=== PATIENT | female | born 1945 | race Caucasian/White ===

== ENCOUNTER 2017-01-15 09:45 | Emergency (ER) | payer MEDICARE ==
[2017-01-15] MEDS ORDERED: Aspirin Low Dose CHEW TAB* 81 MG PO ONE (10:21)
--- NOTE | 2017-01-15 10:53 | RAD ---
Indication: Neck pain, right upper extremity numbness. CT of the cervical spine was obtained in the axial plane. Sagittal and coronal reconstructed images were obtained. Skull base demonstrates no fracture. Mastoid air cells are well aerated. The C1 ring is intact. At C2-C3 there is minimal degenerative disc disease. No focal protrusion is identified. No fractures noted. At C3-C4 there is right uncovertebral joint hypertrophy and right facet arthropathy which narrows the right foramen at this level. Mild degenerative disc disease is noted. 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 Bilateral uncovertebral joint hypertrophy is noted with mild bilateral foraminal stenosis. At C6-C7 spondylitic ridge with flattening of the thecal sac is noted. Mild to moderate bilateral uncovertebral joint hypertrophy narrows both foramen. At C7-T1 degenerative disc disease with spondylytic ridge is noted. Bilateral uncovertebral joint hypertrophy is noted. IMPRESSION: DEGENERATIVE DISC DISEASE AT C4-C5, C5-C6 AND C6-C7 WITH BILATERAL UNCOVERTEBRAL JOINT HYPERTROPHY WITH MILD BILATERAL FORAMINAL STENOSIS AT THESE LEVELS. AT C3-C4 SPONDYLITIC RIDGE WITH RIGHT UNCOVERTEBRAL JOINT HYPERTROPHY AND RIGHT FACET ARTHROPATHY NARROWS THE RIGHT FORAMEN.
[2017-01-15 11:03] LABS: Hematocrit 42 % (35-47); Mean Corpuscular HGB Conc 33 g/dl (31-36); Mean Corpuscular Hemoglobin 31 pg (27-31); Mean Corpuscular Volume 93 fL (80-97); Mean Platelet Volume 8 um3 (7.4-10.4); Red Blood Count 4.49 10^6/ul (4.0-5.4); Red Cell Distribution Width 14 % (10.5-15); White Blood Count 8.1 10^3/ul (3.5-10.8)
[2017-01-15 11:20] LABS: Albumin 4.2 g/dL (3.2-5.2); Calcium 10.1 mg/dL (8.6-10.3); EGFR African American 97.4 (>60); EGFR Non-African American 75.7 (>60); Potassium 3.8 mmol/L (3.5-5.0); Total Bilirubin 0.4 mg/dL (0.2-1.0); Total Protein 7.2 g/dL (6.4-8.9)
[2017-01-15] MEDS ORDERED: Ketorolac INJ* 30 MG/ML 1 ML VIAL IV PUSH ONE (11:40)
--- NOTE | 2017-01-15 11:43 | RAD ---
HISTORY: Chest pain COMPARISONS: August 27, 2016 VIEWS: 4: Frontal dual-energy and lateral views of the chest. FINDINGS: CARDIOMEDIASTINAL SILHOUETTE: The cardiomediastinal silhouette is normal. DESHAWN: The deshawn are normal. PLEURA: The costophrenic angles are sharp. No pleural abnormalities are noted. LUNG PARENCHYMA: The lungs are clear. ABDOMEN: The upper abdomen is clear. There is no subphrenic gas. BONES AND SOFT TISSUES: No bone or soft tissue abnormalities are noted. OTHER: None. IMPRESSION: NO ACTIVE CARDIOPULMONARY DISEASE.
--- NOTE | 2017-01-15 11:44 | RAD ---
HISTORY: Scapular pain, shoulder pain, right COMPARISONS: None VIEWS: 7, Frontal internal rotation, external rotation, outlet, and axillary views of the right shoulder with frontal and lateral views of the right scapula FINDINGS: BONE DENSITY: Normal. BONES: There is no displaced fracture. JOINTS: There is no arthropathy. ALIGNMENT: There is no dislocation. SOFT TISSUES: Unremarkable. OTHER FINDINGS: None. IMPRESSION: NO ACUTE OSSEOUS INJURY. IF SYMPTOMS PERSIST, RECOMMEND REPEAT IMAGING.
[2017-01-15 12:50] VITALS: BP 118/62
--- NOTE | 2017-01-15 12:52 | ED ---
Denae Ruiz Auryana, scribed for Oracio Oh MD on 01/15/17 at 1022 . Upper Extremity Pain - HPI Summary HPI Summary: 71 year old female presents to the ED with right shoulder pain beginning 6 days ago. She states that the pain is focused in her shoulder blade with radiation to her elbow and outer breast. She describes the pain as sudden onset, burning, and heaviness. The pain is waxing and waning, up to a 5/10 in severity ( currently 3/10). Patient also reports itching of her shoulder, numbness, and weakness (new today). She denies any rashes or neck pain. Her symptoms are dissimilar to prior cervical disk pain. She denies any reaching or heavy lifting prior to onset of pain. Patient has been propping her right arm up with a pillow to help with the pain. PMHx is significant for breast cancer, small vessel cardiac disease, and coronary artery disease. She denies any PMHx of DM or hypothryroidism. - History of Current Complaint Chief Complaint: EDExtremityUpper Stated Complaint: RIGHT ARM/SHOULDER PAIN Time Seen by Provider: 01/15/17 10:02 Hx Obtained From: Patient Mechanism Of Injury: Unknown Onset/Duration: Started Days Ago Timing: Intermittent - waxing and waning, Lasting Days Severity Initially: Moderate Severity Currently: Moderate Pain Location: Shoulder, Elbow, Other: - outer breast Character: Burning Aggravating Factor(s): Other - arm by side Alleviating Factor(s): Elevation - Allergies/Home Medications Allergies/Adverse Reactions: Allergies Allergy/AdvReac Type Severity Reaction Status Date / Time No Known Allergies Allergy Verified 01/15/17 10:13 PMH/Surg Hx/FS Hx/Imm Hx Endocrine/Hematology History: Comment Only: Hx Anemia - POST HEAVEY BLEEDING, X@, YEARS AGO Cardiovascular History: Reports: Hx Coronary Artery Disease - SMALL VESSEL CARDIAC DISEASE, NO PROBLEMS, Hx Hypertension - UNDER CONTROLL WITH DAILY MEDS, Other Cardiovascular Problems/Disorders - SMALL VESSEL CARDIAC DISEASE DR SINGH Respiratory History: Reports: Hx Sleep Apnea - NO CPAP, Other Respiratory Problems/Disorders - HX OF COPD SEVERAL YEARS AGO, NO PROBLEMS SINCE, NO INHALERS GI History: Reports: Hx Gastroesophageal Reflux Disease - Hx OF GERD, Hx Hiatal Hernia - Hx OF, Hx Irritable Bowel - SEVERE CONSTIPATION, CONTROLED WITH DAILY MEDS Denies: Other GI Disorders History: Reports: Hx Kidney Stones - LEFT URETERAL CALCULUS PRESENTLY, PASSED ONE IN 03/2014 Musculoskeletal History: Reports: Hx Arthritis - HANDS, HIPS,, Other Musculoskeletal History - LOW BACK PAIN Sensory History: Reports: Hx Cataracts - BILATERAL 2009, Hx Contacts or Glasses - GLASSES Denies: Hx Hearing Aid Opthamlomology History: Reports: Hx Cataracts - BILATERAL 2009, Hx Contacts or Glasses - GLASSES Neurological History: Denies: Other Neuro Impairments/Disorders - Cancer History Cancer Type, Location and Year: BREAST Hx Chemotherapy: No Hx Radiation Therapy: Yes - 2012 left breast - Surgical History Surgery Procedure, Year, and Place: 2009 BILATERAL CATARACT [facility] [place]. 1966 & 1971 C-SECTIONS WITH APPENDECTOMY IN 1966, [facility] [place]. 2012 LEFT BREAST LUMPECTOMY , [facility] [place]. 2012 LEFT AXILIA LYMPH NODE REMOVED, [facility] [place] Hx Anesthesia Reactions: No Infectious Disease History: No Infectious Disease History: Denies: Traveled Outside the [place] in Last 30 Days - Family History Known Family History: Positive: Cardiac Disease, Hypertension, Diabetes, Other - cancer, blood clots - Social History Alcohol Use: Rare Substance Use Type: Reports: None Smoking Status (MU): Former Smoker Type: Cigarettes Have You Smoked in the Last Year: No Review of Systems Constitutional: Negative Negative: Fever Eyes: Negative ENT: Negative Cardiovascular: Negative Respiratory: Negative Gastrointestinal: Negative Genitourinary: Negative Positive: Myalgia - right shoulder with radiation to elbow and outer breast Positive: Other - itching on right shoulder. Negative: Rash Neurological: Negative Psychological: Normal All Other Systems Reviewed And Are Negative: Yes Physical Exam - Summary Physical Exam Summary: VITAL SIGNS: Reviewed. GENERAL: Patient is a well-developed and nourished female who is lying comfortable in the stretcher. Patient is not in any acute respiratory distress. HEAD AND FACE: No signs of trauma. No ecchymosis, hematomas or skull depressions. No sinus tenderness. EYES: PERRLA, EOMI x 2, No injected conjunctiva, no nystagmus. EARS: Hearing grossly intact. Ear canals and tympanic membranes are within normal limits. MOUTH: Oropharynx within normal limits. NECK: Supple, trachea is midline, no adenopathy, no JVD, no carotid bruit, no c- spine tenderness, neck with full ROM. CHEST: Symmetric, no tenderness at palpation LUNGS: Clear to auscultation bilaterally. No wheezing or crackles. CVS: Regular rate and rhythm, S1 and S2 present, no murmurs or gallops appreciated. ABDOMEN: Soft, non-tender. No signs of distention. No rebound no guarding, and no masses palpated. Bowel sounds are normal. EXTREMITIES: FROM in all major joints, no edema, no cyanosis or clubbing. NEURO: Alert and oriented x 3. No acute neurological deficits. Speech is normal and follows commands. SKIN: Dry and warm. Triage Information Reviewed: Yes Vital Signs On Initial Exam: Initial Vitals Temp Pulse Resp BP Pulse Ox 97.7 F 87 20 144/79 96 01/15/17 09:49 01/15/17 09:49 01/15/17 09:49 01/15/17 09:49 01/15/17 09:49 Vital Signs Reviewed: Yes - [place] Coma Scale Coma Scale Total: 15 Diagnostics - Vital Signs Vital Signs Temp Pulse Resp BP Pulse Ox 01/15/17 10:00 97.7 F 87 20 144/79 100 01/15/17 09:49 97.7 F 87 20 144/79 96 - Laboratory Lab Results: Lab Results 01/15/17 01/15/17 01/15/17 Range/Units 10:55 10:55 10:55 WBC 8.1 (3.5-10.8) 10^3/ul RBC 4.49 (4.0-5.4) 10^6/ul Hgb 14.0 (12.0-16.0) g/dl Hct 42 (35-47) % MCV 93 (80-97) fL MCH 31 (27-31) pg MCHC 33 (31-36) g/dl RDW 14 (10.5-15) % Plt Count 310 (150-450) 10^3/ul MPV 8 (7.4-10.4) um3 Neut % (Auto) 73.6 (38-83) % Lymph % (Auto) 14.9 L (25-47) % [place] % (Auto) 9.0 (1-9) % Eos % (Auto) 1.8 (0-6) % Baso % (Auto) 0.7 (0-2) % Absolute Neuts (auto) 6.0 (1.5-7.7) 10^3/ul Absolute Lymphs (auto) 1.2 (1.0-4.8) 10^3/ul Absolute Monos (auto) 0.7 (0-0.8) 10^3/ul Absolute Eos (auto) 0.1 (0-0.6) 10^3/ul Absolute Basos (auto) 0.1 (0-0.2) 10^3/ul Absolute Nucleated RBC 0 10^3/ul Nucleated RBC % 0 Sodium 135 (133-145) mmol/L Potassium 3.8 (3.5-5.0) mmol/L Chloride 104 (101-111) mmol/L Carbon Dioxide 24 (22-32) mmol/L Anion Gap 7 (2-11) mmol/L BUN 15 (6-24) mg/dL Creatinine 0.75 (0.51-0.95) mg/dL Est GFR ( Amer) 97.4 (>60) Est GFR (Non-Af Amer) 75.7 (>60) BUN/Creatinine Ratio 20.0 (8-20) Glucose 89 (70-100) mg/dL Lactic Acid 1.2 (0.5-2.0) mmol/L Calcium 10.1 (8.6-10.3) mg/dL Total Bilirubin 0.40 (0.2-1.0) mg/dL AST 15 (13-39) U/L ALT 22 (7-52) U/L Alkaline Phosphatase 94 (34-104) U/L Troponin I 0.00 (<0.04) ng/mL B-Natriuretic Peptide ( - 100) pg/mL Total Protein 7.2 (6.4-8.9) g/dL Albumin 4.2 (3.2-5.2) g/dL Globulin 3.0 (2-4) g/dL Albumin/Globulin Ratio 1.4 (1-3) 01/15/ Range/Units 10:55 WBC (3.5-10.8) 10^3/ul RBC (4.0-5.4) 10^6/ul Hgb (12.0-16.0) g/dl Hct (35-47) % MCV (80-97) fL MCH (27-31) pg MCHC (31-36) g/dl RDW (10.5-15) % Plt Count (150-450) 10^3/ul MPV (7.4-10.4) um3 Neut % (Auto) (38-83) % Lymph % (Auto) (25-47) % [place] % (Auto) (1-9) % Eos % (Auto) (0-6) % Baso % (Auto) (0-2) % Absolute Neuts (auto) (1.5-7.7) 10^3/ul Absolute Lymphs (auto) (1.0-4.8) 10^3/ul Absolute Monos (auto) (0-0.8) 10^3/ul Absolute Eos (auto) (0-0.6) 10^3/ul Absolute Basos (auto) (0-0.2) 10^3/ul Absolute Nucleated RBC 10^3/ul Nucleated RBC % Sodium (133-145) mmol/L Potassium (3.5-5.0) mmol/L Chloride (101-111) mmol/L Carbon Dioxide (22-32) mmol/L Anion Gap (2-11) mmol/L BUN (6-24) mg/dL Creatinine (0.51-0.95) mg/dL Est GFR ( Amer) (>60) Est GFR (Non-Af Amer) (>60) BUN/Creatinine Ratio (8-20) Glucose (70-100) mg/dL Lactic Acid (0.5-2.0) mmol/L Calcium (8.6-10.3) mg/dL Total Bilirubin (0.2-1.0) mg/dL AST (13-39) U/L ALT (7-52) U/L Alkaline Phosphatase (34-104) U/L Troponin I (<0.04) ng/mL B-Natriuretic Peptide 17 ( - 100) pg/mL Total Protein (6.4-8.9) g/dL Albumin (3.2-5.2) g/dL Globulin (2-4) g/dL Albumin/Globulin Ratio (1-3) Result Diagrams: 01/15/17 10:55 01/15/17 10:55 Lab Statement: Any lab studies that have been ordered have been reviewed, and results considered in the medical decision making process. - Radiology RIGHT SCAPULA XR Xray Interpretation: No Acute Changes Radiology Interpretation Completed By: Radiologist - IMPRESSION: NO ACUTE OSSEOUS INJURY. IF SYMPTOMS PERSIST, RECOMMEND REPEAT IMAGING. RIGHT Shoulder XR Xray Interpretation: No Acute Changes - IMPRESSION: NO ACUTE OSSEOUS INJURY. IF SYMPTOMS PERSIST, RECOMMEND REPEAT IMAGING. Radiology Interpretation Completed By: Radiologist CXR Xray Interpretation: No Acute Changes Radiology Interpretation Completed By: Radiologist - CT CERVICAL CT CT Interpretation: Positive (See Comments) - IMPRESSION: DEGENERATIVE DISC DISEASE AT C4-C5, C5-C6 AND C6-C7 WITH BILATERAL UNCOVERTEBRAL JOINT HYPERTROPHY WITH MILD BILATERAL FORAMINAL STENOSIS AT THESE LEVELS. CT Interpretation Completed By: Radiologist - EKG 10:53 EKG Interpretation: Sinus rhythm at [address] elevation. Course/Dx - Course Assessment/Plan: 71 year old female presents to the ED with right shoulder pain beginning 6 days ago. She states that the pain is focused in her shoulder blade with radiation to her elbow and outer breast. She describes the pain as sudden onset, burning, and heaviness. The pain is waxing and waning, up to a 5/10 in severity (currently 3/10). Patient also reports itching of her shoulder, numbness, and weakness (new today). She denies any rashes or neck pain. Her symptoms are dissimilar to prior cervical disk pain. She denies any reaching or heavy lifting prior to onset of pain. Patient has been propping her right arm up with a pillow to help with the pain. PMHx is significant for breast cancer, small vessel cardiac disease, and coronary artery disease. She denies any PMHx of DM or hypothyroidism. In the ED course an IV access was obtained. Patient was placed in a quality assurance monitor final. Labs within normal limits. Troponin #1: 0.00. EKG shows a NSR at 73 BPM w/o ST elevations. C spine CT: IMPRESSION: DEGENERATIVE DISC DISEASE AT C4-C5, C5-C6 AND C6-C7 WITH BILATERAL UNCOVERTEBRAL JOINT HYPERTROPHY WITH MILD BILATERAL FORAMINAL STENOSIS AT THESE LEVELS. AT C3-C4 SPONDYLOTIC RIDGE WITH RIGHT UNCOVERTEBRAL JOINT HYPERTROPHY AND RIGHT FACET. ARTHROPATHY NARROWS THE RIGHT FORAMEN. Scapula x-ray IMPRESSION: NO ACUTE OSSEOUS INJURY. IF SYMPTOMS PERSIST, RECOMMEND REPEAT IMAGING. [place] x-ray IMPRESSION: NO ACUTE OSSEOUS INJURY. IF SYMPTOMS PERSIST, RECOMMEND REPEAT IMAGING. CXR IMPRESSION: CARDIOMEGALY WITH INTERSTITIAL EDEMA LIKELY DUE TO PULMONARY EDEMA. In the ED patient has remained stable. She has no other complaints. She was given Toradol and symptoms improved. I believe pain and numbness is coming from her neck. I have nos suspicion or ACS or PE. She will be given pain medication and medrol dose pack and f/u with PMD. She will be discharged home with f/u of PMD. I discussed all the findings and test results with the patient. Patient was instructed to return to the emergency room immediately if any of the symptoms return or worsens. Plan of care was discussed with the patient and understands and agrees. All questions were answered at patient satisfaction. There were no further complaints or concerns. Lung exam before discharge: CTA B/L. Good air exchange. No wheezing or crackles heard. CVS: S1 and S2 present. No murmurs appreciated. Patient is alert and oriented x 3. Patient is hemodynamically stable. Patient will be discharged home with follow up PCP in the next 2-3 days - Diagnoses Differential Diagnosis/HQI/PQRI: Positive: Arthritis, Bursitis, Fracture (Closed ), Strain, Sprain Provider Diagnoses: Shoulder pain, Neck pain Discharge - Discharge Plan Condition: Stable Disposition: HOME Prescriptions: Methylprednisolone [Medrol Dosepak 4 MG*] 0 mg PO .SEE ASIF INSTRUCTION #1 asif Naproxen TAB* [Naprosyn 250 mg TAB*] 500 mg PO Q8H PRN #20 tab PRN Reason: Pain oxyCODONE/Acetamin 5/325 MG* [Percocet 5/325 TAB*] 1 tab PO Q6H PRN #12 tab MDD 4 tabs / day PRN Reason: Pain Patient Education Materials: Shoulder Pain (ED), Neck Pain (ED) Referrals: Abbi Swann MD [Primary Care Provider] - 3 Days The documentation as recorded by the Denae correa Auryana accurately reflects the service I personally performed and the decisions made by , Oracio Oh MD.
== END 2017-01-15 12:54 | disposition home or self-care (01) ==
LOC: ED 09:45
DX: M54.2 Cervicalgia (principal); M25.511 Pain in right shoulder; Z87.891 Personal history of nicotine dependence
CPT/HCPCS: 36415; 71020; 72125; 80053; 83605; 83880; 84484; 85025; 93005; 96374; 99283; A9270-GY; J1885

== ENCOUNTER 2017-05-19 10:22 | Day surgery (SDC) | payer MEDICARE ==
--- NOTE | 2017-05-18 03:14 | HP ---
CC: Dr. Abbi Swann* HISTORY AND PHYSICAL: DATE OF PLANNED ADMISSION AND SURGERY: 05/19/17 HISTORY OF PRESENT ILLNESS: Ms. Middleton is a 72-year-old white female who is admitted with proximal left ureteral calculi for cystoscopy, left ureteroscopy, laser lithotripsy, and left ureteral stent placement. I have been following Ms. Middleton because of history of renal calculus disease. In June 2017, she had a distal left ureteral calculus and underwent a left ureteroscopy and stent placement. She did well following the procedure. At that time, she was noted to have no residual renal calculi. She was reevaluated 5 months ago with routine renal ultrasound. She was noted to have 3 calculi in the left kidney with the largest measuring 7 mm in size. Because of that finding, she had metabolic stone workup, which showed hypercalciuria. She was started on chlorthalidone at 25 mg daily and put on diet for stone prevention. Followup 24-hour urine studies showed correction of the hypercalciuria and normal blood work with no hypercalcemia. The patient presented to the office about 2 weeks ago with symptoms of left renal colic. She was evaluated with renal ultrasound, which showed a 6-mm calculus in the proximal left ureter. She was managed conservatively with pain medications and alpha blockers. She remained moderately symptomatic. Recent renal ultrasound done in the office showed that she had what looks like 2 calculi in the proximal left ureter associated with mild left hydronephrosis and only 1 calculus in the lower pole calyx of the left kidney. Because of that history and finding, the size of the stones, and their proximal location, and the fact that they have not dropped in the last 2 weeks, the patient is admitted for the above procedure. PAST MEDICAL HISTORY AND SYSTEM REVIEW: She gives history of hypertension, palpitations, past history of angina, and past history of left breast carcinoma. She was evaluated 2 months ago for her routine cardiology visit by Dr. Alberto. I am including a copy of his report. It seems like she has very good exercise tolerance and exercises actively for about 3 times per week on the treadmill with no chest pain or shortness of breath. MEDICATIONS: The patient is maintained on: 1. Lipitor 80 mg daily. 2. Diltiazem 120 mg twice a day. 3. Omeprazole 20 mg twice a day. 4. Amitiza 24 mcg 1 tablet twice a day. 5. Isosorbide 15 mg daily. 6. One baby aspirin per day. 7. Vitamin D supplement. ALLERGIES: She denies any allergies to medications. PHYSICAL EXAMINATION GENERAL: Overweight white female, who looks otherwise good for her age. VITAL SIGNS: Blood pressure 120/70, pulse of 70. LUNGS: Clear. HEART: Regular and rhythmic. No murmurs. ABDOMEN: Soft, no masses, no tenderness. There is mild left CVA tenderness. IMPRESSION: Proximal left ureteral calculi associated with mild hydronephrosis. PLAN: For left ureteroscopy, laser lithotripsy, and left ureteral stent placement. I discussed the above plans in detail with the patient. Some of the potential complications including small incidence of ureteral stricture, urinary tract infections. The patient understands that she might need staged procedure if the calculi cannot be reached or they cannot be treated at one sitting. All of her questions were answered. [id number]/CPS #: [id number] MTDD
[~2017-05-19 10:22] MED LIST: Buffered Lidocaine 0.9% SYRIN* 5 ML/SYR SYRINGE INTRADERM ONE; Buffered Lidocaine 0.9% SYRIN* 5 ML/SYR SYRINGE ONE; DiMENhydriNATE IV* 50 MG/ML VIAL IV PUSH PRN; Famotidine IV* 10 MG/ML 2 ML (20 mg) IV ONE; Famotidine IV* 10 MG/ML 2 ML (20 mg) ONE; Morphine INJ* 2 MG/ML 1 ML CARPUJECT IV PRN; PROCHLORPERAZINE INJ 5 MG/ML 2 ML VIAL IV PRN; cefTRIAXone(*) 2 GM ADDV.VIAL IVPB ONE; fentaNYL* 50 MCG/ML 2 ML VIAL (100 MCG VIAL) IV PRN; oxyCODONE/Acetamin 5/325 MG* TAB PO PRN
[2017-05-19] MEDS ORDERED: KETAMINE HCL* 50 MG/ML 10 ML VIAL ONE (11:03)
[2017-05-19] MEDS ORDERED: Midazolam* 1 MG/ML 5 ML VIAL (5 MG) ONE (11:03)
[2017-05-19] MEDS ORDERED: fentaNYL* 50 MCG/ML 2 ML VIAL (100 MCG VIAL) ONE (11:03)
[2017-05-19] MEDS ORDERED: Furosemide IV* 10 MG/ML 2 ML VIAL (20 MG) ONE (11:04)
[2017-05-19] MEDS ORDERED: Iohexol 180 (CONTRAST) 10 ML SDV IV ONE (11:53)
[2017-05-19] MEDS ORDERED: Ondansetron INJ* 2 MG/ML VIAL ONE (13:39)
[2017-05-19] MEDS ORDERED: Lidocaine 2% PF * 5 ML VIAL ONE (13:39)
[2017-05-19] MEDS ORDERED: Diltiazem IV* 5 MG/ML 5 ML VIAL (for loading dose/IV Push) (25 MG) ONE (13:39)
[2017-05-19] MEDS ORDERED: Propofol* 10 MG/ML 20 ML BTL IV PUSH ONE (13:39)
[2017-05-19] MEDS ORDERED: Dexamethasone IV* 4 MG/ML 1 ML (4 MG) ONE (13:39)
--- NOTE | 2017-05-19 14:08 | RAD ---
INDICATION: Right ureteral stent insertion/ureteroscopy COMPARISON: None FINDINGS: 7 seconds of fluoroscopy were provided for the urology department. Fluoroscopic spot imaging of the abdomen were obtained for operative control and show placement of left ureteral stent. The proximal stent is: The renal pelvis. The distal portion stent is not imaged . CPT II Codes: 6045F (fluoro time doc)
[2017-05-19 14:17] VITALS: BP 138/72
--- NOTE | 2017-05-20 05:57 | OP ---
CC: Dr. Abbi Swann * DATE OF OPERATION: 05/19/17 - [facility] DATE OF : 41 SURGEON: Tio Patricio MD ANESTHESIOLOGIST: Dr. Theron Ahmadi. ANESTHESIA: General. PRE-OP DIAGNOSIS: Proximal left ureteral calculi. POST-OP DIAGNOSIS: Proximal left ureteral calculi. OPERATIVE PROCEDURE: 1. Cystoscopy. 2. Left ureteroscopy and pyeloscopy. 3. Laser lithotripsy and extraction of proximal left ureteral calculi 4. Left retrograde pyelography and placement of left ureteral stent (6-Kosovan). INDICATIONS FOR PROCEDURE: Ms. Middleton is a 72-year-old white female who is a known stone former and who presented 2 weeks ago with symptoms of left renal colic and was noted on evaluation to have 6 to 7 mm calculus in the proximal left ureter associated with mild hydronephrosis. She was managed conservatively with alpha blockers and pain medications as needed. Followup renal ultrasound 2 days ago showed that another calculus which was located in the lower pole of the left kidney had migrated into the proximal ureter adjacent to the stone forming a cluster of stone of more than 1 cm in size. This was associated with mild hydronephrosis. Because of the size of the ureteral calculi, the proximal location and the persistent symptoms, the above procedure were advised and accepted. PATHOLOGY: At cystoscopy, the bladder mucosa looked normal. There were no suspicious bladder lesion seen. The ureteral orifices looked normal. There was a moderate degree of cystocele. At fluoroscopy, a cluster of calculi was noted in the area of the proximal left ureter. Upon introduction of the hybrid wire, there was initial resistance to the introduction of the wire beyond the stones. Upon left ureteroscopy, the calculi were noted in the proximal ureter about 3 to 4 cm distal to the ureteropelvic junction. One of the calculi was impacted and adherent to the ureteral wall. The calculi had the gross appearance of calcium oxalate stone. DESCRIPTION OF PROCEDURE: After successful general anesthesia, the patient was placed in the lithotomy position and was prepped and draped for a cystoscopy. Cystoscopy was performed. The bladder was carefully inspected and above findings were noted. A hybrid guidewire was then introduced into the left orifice and after several attempts was successfully introduced into the renal pelvis past the ureteral calculi. A size 6.5 semirigid tapered ureteroscope was then introduced inside the bladder. A flexible tip basket was introduced through the port of the ureteroscope and the flexible tip was then passed inside the left ureteral orifice adjacent to the guidewire. This allowed the atraumatic introduction of the ureteroscope into the ureter. The ureter yielded easily to the ureteroscope. The calculi were identified in the proximal ureter. The basket was then deployed beyond the stones to avoid their proximal migration. A size 550 micron laser fiber was then introduced through the other port of the ureteroscope and the stones were fragmented into smaller pieces. The fragments were then extracted. The stone that was impacted in the ureteral wall was gently maneuvered and successfully broken into smaller fragments with laser and the fragments extracted. The ureteroscope was then reintroduced all the way into the renal pelvis in an atraumatic way. Stone fragments that have migrated proximally were then extracted. Inspection of the ureteral wall showed some edema, but no evidence of any ureteral wall injury. After making sure there were no significant residual calculi, the ureteroscope was removed and the cystoscope was introduced inside the bladder over the guidewire. Retrograde pyelography was performed. There was no extravasation noted. A size 6- Kosovan stent was then placed with the proximal end coiling in the renal pelvis and the distal end coiling inside the bladder. There was good drainage of contrast from the kidney. The bladder was then irrigated and the stone fragments were evacuated and sent for stone analysis. The patient tolerated the procedure well and left the operating room in good condition. The plan is to leave the stent in place for 10 to 14 days. It will be removed in the office under local anesthesia. [id number]/CPS #: [id number] [id number]
== END 2017-05-19 14:46 | disposition home or self-care (01) ==
LOC: OR 10:22
PROVIDERS: ATTEND Urology
DX: N13.2 Hydronephrosis with renal and ureteral calculous obstruction (principal); I10 Essential (primary) hypertension; I20.9 Angina pectoris, unspecified; Z85.3 Personal history of malignant neoplasm of breast; E78.5 Hyperlipidemia, unspecified; Z96.0 Presence of urogenital implants; N81.10 Cystocele, unspecified
CPT/HCPCS: 74420; 82365; 88300; C1876; J0696; J1100; J1940; J2250; J2405; J2704; J3010

== ENCOUNTER 2018-07-21 05:44 | Day surgery (SDC) | payer MEDICARE ==
--- NOTE | 2018-07-15 17:52 | HP ---
HISTORY AND PHYSICAL: DATE OF ADMISSION/SURGERY: 07/21/18 DATE OF OFFICE VISIT: 07/15/18 SURGEON: Luann Terrell MD * (DICTATED BY NATALIYA QUINN) PROCEDURE: Right knee arthroscopy with partial meniscectomy, possible chondroplasty, possible synovectomy. CHIEF COMPLAINT: Right knee pain. HISTORY OF PRESENT ILLNESS: Ms. Middleton is a 73-year-old female with continued complaints of right knee pain and she is elected to proceed with surgery. PAST MEDICAL HISTORY: Sleep apnea, history of breast cancer, GERD, hypertension , hyperlipidemia, and coronary artery disease. PAST SURGICAL HISTORY: Left breast lumpectomy, cataract removal, x2, lymph node biopsy, removal of kidney stones, and appendectomy. CURRENT MEDICATIONS: 1. Cardizem 120 mg twice a day. 2. Magnesium oxide 250 mg daily. 3. Potassium chloride 20 mEq daily. 4. Chlorthalidone 25 mg daily. 5. Atorvastatin calcium 40 mg daily. 6. Omeprazole 20 mg twice a day. 7. Amitiza 24 mcg twice a day. 8. Isosorbide mononitrate 30 mg half a tab daily. 9. Aspirin 81 mg daily. 10. Vitamin D. ALLERGIES: No known drug allergies. FAMILY HISTORY: DVT, diabetes, cancer, and coronary artery disease. SOCIAL HISTORY: She is a 73-year-old female. She lives with her . She does not smoke or use drugs. Uses occasional alcohol. REVIEW OF SYSTEMS: A complete 14-point review of systems was reviewed with the patient. It was positive for GERD. She denies history of DVT, PE, hepatitis, HIV, or anesthesia problems. PHYSICAL EXAMINATION GENERAL: She is well developed, well nourished, in no acute distress. VITAL SIGNS: She stands 58 inches tall, weighs 180 pounds. Her blood pressure is 124/77 and her heart rate is 62. HEENT: Normocephalic, atraumatic. NECK: Supple. No palpable lymph nodes. PULMONARY: The lungs are clear to auscultation bilaterally. CARDIO: Regular rate and rhythm. Strong S1 and S2. ABDOMEN: Soft, nontender, nondistended. NEUROLOGICAL: She is alert and oriented x3. MUSCULOSKELETAL: Right lower extremity, the skin is intact. There are no open wounds or abrasions. There is some tenderness over the medial joint line. There is a mild effusion. She has a positive Apley's and positive Zahra's. Negative Ara's. The range of motion is 10 to 120 degrees of flexion. She has a 2+ dorsalis pedis pulse, intact sensation, and her lower extremity muscle group strengths are intact at 5/5. ASSESSMENT AND PLAN: Ms. Middleton is a 73-year-old female with complaints of right knee pain and MRI confirms a medial meniscus tear. She is elected to proceed with a right knee arthroscopy with partial meniscectomy, possible chondroplasty, possible synovectomy. The surgery is scheduled for 07/21/[address] Terrell discussed the risks and benefits of the surgery at today's visit and all of her questions were answered. She will follow up with Dr. Terrell 2 weeks after the surgery. NATALIYA QUINN [id number]/[facility] #: [id number] [place]
[~2018-07-21 05:44] MED LIST changes: -Buffered Lidocaine 0.9% SYRIN* 5 ML/SYR SYRINGE INTRADERM ONE; -Buffered Lidocaine 0.9% SYRIN* 5 ML/SYR SYRINGE ONE; +Buffered Lidocaine 1% SYRIN* 1 ML/SYRINGE INTRADERM ONE; -DiMENhydriNATE IV* 50 MG/ML VIAL IV PUSH PRN; -Famotidine IV* 10 MG/ML 2 ML (20 mg) IV ONE; -Famotidine IV* 10 MG/ML 2 ML (20 mg) ONE; -Morphine INJ* 2 MG/ML 1 ML CARPUJECT IV PRN; -PROCHLORPERAZINE INJ 5 MG/ML 2 ML VIAL IV PRN; -cefTRIAXone(*) 2 GM ADDV.VIAL IVPB ONE; -fentaNYL* 50 MCG/ML 2 ML VIAL (100 MCG VIAL) IV PRN; -oxyCODONE/Acetamin 5/325 MG* TAB PO PRN
[2018-07-21] MEDS ORDERED: Dexamethasone IV* 4 MG/ML 1 ML (4 MG) IV SLOW PU ONE (06:00)
[2018-07-21] MEDS ORDERED: Lactated Ringers 1000 ML Bag* 1,000 ML IV SCH (06:00)
[2018-07-21] MEDS ORDERED: Dexamethasone IV* 4 MG/ML 1 ML (4 MG) ONE (06:10)
[2018-07-21] MEDS ORDERED: Buffered Lidocaine 1% SYRIN* 1 ML/SYRINGE INTRADERM ONE (06:10)
[2018-07-21] MEDS ORDERED: ceFAZolin 2 GM PREMIX in ORs 2 GM/50 ML BAG IVPB ONE (06:10)
[2018-07-21] MEDS ORDERED: EPINEPHRINE 1 MG/ML 1 ML VIAL ONE (06:59)
[2018-07-21] MEDS ORDERED: methylPREDNISolone ACETATE 80* 80 MG/ML 1 ML VIAL ONE (06:59)
[2018-07-21] MEDS ORDERED: Bupivacaine 0.5%* 50 ML VIAL ONE (06:59)
[2018-07-21] MEDS ORDERED: Midazolam* 1 MG/ML 2 ML VIAL (2 MG) ONE (07:07)
[2018-07-21] MEDS ORDERED: fentaNYL* 50 MCG/ML 2 ML VIAL (100 MCG VIAL) ONE (07:07)
[2018-07-21] MEDS ORDERED: EPHEDrine (Pressors)* 50 MG/ML VIAL ONE (07:09)
[2018-07-21] MEDS ORDERED: Propofol* 10 MG/ML 20 ML BTL ONE (07:12)
[2018-07-21] MEDS ORDERED: Ondansetron INJ* 2 MG/ML VIAL ONE (07:12)
[2018-07-21] MEDS ORDERED: Lidocaine 2% PF * 5 ML VIAL ONE (07:12)
[2018-07-21] MEDS ORDERED: Ketorolac INJ* 30 MG/ML 1 ML VIAL ONE (07:12)
[2018-07-21] MEDS ORDERED: oxyCODONE/Acetamin 5/325 MG* TAB PO PRN (08:48)
[2018-07-21] MEDS ORDERED: Naloxone* 0.4 MG/ML 1 ML VIAL IV PRN (08:48)
[2018-07-21] MEDS ORDERED: fentaNYL* 50 MCG/ML 2 ML VIAL (100 MCG VIAL) IV PRN (08:48)
[2018-07-21] MEDS ORDERED: Ondansetron INJ* 2 MG/ML VIAL IV PRN (08:48)
[2018-07-21] MEDS ORDERED: DiMENhydriNATE IV* 50 MG/ML VIAL IV PUSH PRN (08:48)
[2018-07-21] MEDS ORDERED: oxyCODONE/Acetamin 5/325 MG* TAB ONE (09:00)
[2018-07-21 09:45] VITALS: BP 108/73
--- NOTE | 2018-07-22 00:44 | OP ---
DATE OF OPERATION: 07/21/18 - [facility] DATE OF : 41 ATTENDING SURGEON: Luann Terrell MD DISPLAY DECORATOR: NATALIYA Harris. Darvin did help throughout the procedure with preparation of the leg, wound retraction, manipulation of the knee, and wound closure. ANESTHESIOLOGIST: Dr. Montenegro. ANESTHESIA: General. PRE-OP DIAGNOSES: Right knee medial meniscal tear, moderate osteoarthritis. POST-OP DIAGNOSES: Right knee medial meniscal tear, linear tear with significant displacement, lateral meniscal tear, radial tear, medial plica, moderate osteoarthritis. OPERATIVE PROCEDURE: Right knee arthroscopy with partial medial meniscectomy, partial lateral meniscectomy, medial plica excision. ESTIMATED BLOOD LOSS: Less than 25 cc. COMPLICATIONS: None. SPECIMEN: None. BRIEF HISTORY/INDICATION: Ms. Middleton is a 73-year-old female known to me in the past for right knee osteoarthritis. She developed mechanical symptoms that were giving her significant pain. She failed conservative treatment with antiinflammatories, physical therapy, and intraarticular injection. Due to continued pain and decreased quality of life, we obtained MRI which did confirm a medial meniscal tear. The patient elected to undergo right knee arthroscopy, partial meniscectomy, possible chondroplasty, possible synovectomy, possible plica excision. Informed consent was obtained from the patient. The patient understood the risks of surgery included but were not limited to bleeding, infection, damage to nearby structures, continued pain, need for further surgery , re-tear of the meniscus, progression of arthritis, stroke, heart attack, blood clot, and . She wished to proceed. INTRAOPERATIVE FINDINGS: Intraoperatively, the patient was noted to have moderate degenerative changes in the medial and patellofemoral compartment. These were grade 3 and 4 Outerbridge cartilage changes with limited surface area of the weightbearing surfaces. She had a significant linear tear of the medial meniscus involving the majority of the meniscus with displacement into the joint space. This was in the white-red zone. She also had a radial tear of the posterolateral meniscus, which was a radial tear in the white-red zone. The patient had a significant medial plica, which did impinge with range of motion in the patellofemoral compartment. DESCRIPTION OF PROCEDURE: Ms. Middleton was identified in the preanesthesia unit. Her right lower extremity was marked as the correct operative site. Informed consent was signed and placed in the chart. The patient was taken to the operating room and placed under general anesthesia. The patient's right lower extremity was prepped and draped in the usual sterile fashion. Preop time -out was made to correctly identify the patient, side, and site. Appropriate perioperative antibiotics were given within 1 hour of incision. A 0.5-cm anterolateral portal incision was made with a 10-blade and carried down to the capsule. Trocar was introduced. As soon as the light and water sources were turned on, there was immediate visualization of the suprapatellar pouch. A tour of the knee joint was performed. Suprapatellar pouch had no obvious abnormality. The patellofemoral compartment had some grade 3 and 4 Outerbridge cartilage changes with some visible frayed cartilage along the medial and lateral patellar facet. There was a large medial plica, which did impinge with range of motion when the knee was flexed at the patellofemoral compartment. The medial compartment showed some degeneration and grade 3/4 Outerbridge cartilage changes along the medial femoral condyle. There was a linear meniscal tear with displacement into the joint space anteriorly. This was in the white-red zone. This involved the majority of the medial meniscus. ACL and PCL appeared to be intact. The knee was placed in a [id number]-[id number]-[id number] position. There were minimal degenerative changes in the lateral compartment. There was a radial tear with displacement into the joint space at the white-red zone. There was no abnormality in the lateral gutter. Under direct visualization, a medial portal incision was made. A second tour of the knee joint was performed. Radio-frequency ablation wand and shaver were used to excise the medial plica. Straight biter and shaver were used to perform partial medial meniscectomy. A smooth border of the meniscus was obtained. Radiofrequency ablation wand was used to further smooth the edge. The knee was placed in a yefprv-gw-[id number] position. Straight biter and shaver were used to perform partial lateral meniscectomy until a smooth border of the meniscus was obtained. Knee was copiously irrigated with sterile saline. All instruments were removed. Intraarticular injection of 80 mg Depo-Medrol and 6 cc of 0.25% Marcaine was placed in the knee joint. The incisions were covered with Xeroform, 4x4s, Webril, and Ciro wrap. The patient was taken to the PACU in stable condition. [id number]/[facility] #: [id number] [place]
== END 2018-07-21 09:47 | disposition home or self-care (01) ==
LOC: OR 05:44
PROVIDERS: ATTEND Orthopaedic Surgery Adult Reconstructive Orthopaedic Surgery
DX: S83.241A Other tear of medial meniscus, current injury, right knee, initial encounter (principal); M17.11 Unilateral primary osteoarthritis, right knee; M25.561 Pain in right knee; M25.461 Effusion, right knee; S83.281A Other tear of lateral meniscus, current injury, right knee, initial encounter; X58.XXXA Exposure to other specified factors, initial encounter; Z85.3 Personal history of malignant neoplasm of breast; K21.9 Gastro-esophageal reflux disease without esophagitis; I10 Essential (primary) hypertension; I25.10 Atherosclerotic heart disease of native coronary artery without angina pectoris; E78.5 Hyperlipidemia, unspecified; Z79.82 Long term (current) use of aspirin; Z79.899 Other long term (current) drug therapy
CPT/HCPCS: A9270-GY; J0690; J1040; J1100; J1885; J2250; J2405; J2704; J3010

== ENCOUNTER 2019-04-20 06:22 | Observation (INO) | payer MEDICARE ==
[~2019-04-20 06:22] MED LIST changes: +Acetaminophen IV 1GM/100ML * 1,000 MG/100 ML VIAL IVPB ONE; +Gabapentin CAP(*) 300 MG PO ONE; +Lactated Ringers 1000 ML Bag* 1,000 ML IV SCH; +celeCOXIB CAP* 200 MG PO ONE
[2019-04-20] MEDS ORDERED: Tranexamic Acid 1,000 MG in NS 0.9% 50 ML IV ONE (07:00)
[2019-04-20] MEDS ORDERED: ROPIVACAINE 5 MG/ML 30 ML BTL (0.5%) ONE ×2 (07:01→08:17)
[2019-04-20] MEDS ORDERED: Gabapentin CAP(*) 300 MG ONE ×2 (07:28→07:45)
[2019-04-20] MEDS ORDERED: ceFAZolin 2 GM PREMIX in ORs 2 GM/50 ML BAG ONE (07:29)
[2019-04-20] MEDS ORDERED: Acetaminophen IV 1GM/100ML * 100 ML ONE (07:29)
[2019-04-20] MEDS ORDERED: Dexamethasone TAB* 4 MG ONE (07:29)
[2019-04-20] MEDS ORDERED: celeCOXIB CAP* 200 MG ONE (07:29)
[2019-04-20] MEDS ORDERED: Dexamethasone IV* 4 MG/ML 1 ML (4 MG) ONE (07:40)
[2019-04-20] MEDS: Dexamethasone TAB* 4 MG PO ONE ×2 (07:41→16:06)
[2019-04-20] MEDS ORDERED: Propofol* 10 MG/ML 20 ML BTL ONE (07:48)
[2019-04-20] MEDS ORDERED: Midazolam* 1 MG/ML 5 ML VIAL (5 MG) ONE (07:48)
[2019-04-20] MEDS ORDERED: KETAMINE HCL* 50 MG/ML 10 ML VIAL ONE (07:48)
[2019-04-20] MEDS ORDERED: Phenylephrine 10 MG/ML VIAL* 1 ML VIAL ONE (07:48)
[2019-04-20] MEDS ORDERED: Ondansetron INJ* 2 MG/ML VIAL ONE (07:48)
[2019-04-20] MEDS ORDERED: Bupivacaine 0.5% SDV PF* 30ML VIAL ONE (08:34)
[2019-04-20] MEDS ORDERED: Ondansetron INJ* 2 MG/ML VIAL IV PRN ×2 (10:27→11:38)
[2019-04-20] MEDS ORDERED: HYDROmorphone INJ1* 1 MG/ML SYRINGE IV PRN (10:27)
[2019-04-20] MEDS ORDERED: Naloxone* 0.4 MG/ML 1 ML VIAL IV PRN (10:27)
[2019-04-20] MEDS ORDERED: fentaNYL* 50 MCG/ML 2 ML VIAL (100 MCG VIAL) IV PRN (10:27)
[2019-04-20] MEDS ORDERED: DiMENhydriNATE IV* 50 MG/ML VIAL IV PUSH PRN (10:27)
[2019-04-20] MEDS ORDERED: Scopolamine 1.5 mg* PATCH TRANSDERM PRN (10:27)
[2019-04-20] MEDS ORDERED: diPHENhydraMINE IV* 50 MG/ML 1 ml VIAL (BENADRYL) IV PRN (11:38)
[2019-04-20] MEDS ORDERED: Morphine INJ* 2 MG/ML 1 ML SYRINGE (TWO MG - NEW SYRINGE VERSION) IV PRN (11:38)
[2019-04-20] MEDS ORDERED: Ondansetron ODT TAB* 4 MG PO PRN (11:38)
[2019-04-20] MEDS ORDERED: diPHENhydraMINE PO* 25 MG PO PRN (11:38)
[2019-04-20] MEDS ORDERED: Magnesium Hydroxide LIQ* 30 ML UDC PO PRN (11:38)
[2019-04-20] MEDS ORDERED: Polyethylene Glycol 3350* 17 GM PACKET PO PRN (11:38)
[2019-04-20] MEDS ORDERED: Cyclobenzaprine TAB* 10 MG PO PRN (11:38)
[2019-04-20] MEDS ORDERED: traMADol TAB* 50 MG PO PRN (11:38)
--- NOTE | 2019-04-20 15:27 | OP ---
Operative Report - Blank - Operative Report Date of Operation: 04/20/19 Note: YAHAIRA JOHN 1945 Date of Surgery: 04/20/19 Luann Terrell MD Administrator [facility] Facility: [facility] did help throughout the procedure with preparation of the knee, wound retraction, manipulation of the knee, and wound closure. Anesthesiologist: Blossom Montenegro MD Anesthesia Type: Spinal Preoperative Diagnosis: Right severe degenerative osteoarthritis of the knee Postoperative Diagnosis: As above Procedure Performed: Right Total Knee Arthroplasty Tourniquet time: 41 minutes Complications: None Specimen: Bone and cartilage from the right knee joint sent to pathology. Hardware Used: Cemented Mercer [employer] Nephew total knee hardware was used - For the femur a size 4 right legion posterior stabilized femoral component, for the tibia a size 2 right jaime II tibial baseplate, for the insert a size 9mm 1-2 high flex posterior stabilized articular polyethylene insert, and for the patella a size 29 3-peg all poly patella. Brief History/Indication: YAHAIRA JOHN was known in clinic and had a history of severe right knee pain and swelling. She failed conservative treatment with anti-inflammatories, pain pills, intra-articular injections and physical therapy. She elected to undergo right total knee arthroplasty due to continued pain and decreased quality of life. Radiographs showed severe end stage osteoarthritis of the knee with bone on bone contact. Informed consent was obtained from the patient. She understood the risks of surgery included but were not limited to: bleeding, infection, damage to nearby structures, intraoperative fracture, nerve palsy, failure of the hardware, early loosening, knee stiffness or loss of motion, anesthesia complications, stroke, heart attack , blood clot and . She wished to proceed. Intra-Operative Findings: Intraoperatively the patient was noted to have severe loss of cartilage in all 3 compartments of the knee. Description of the Procedure: YAHAIRA JOHN was identified in the preanesthesia unit. Her right knee was marked as the correct operative side. Informed consent was signed and placed in the chart. The patient was taken to the operating room and placed under anesthesia without complication. A contreras catheter was placed. A tourniquet was placed on the right thigh. The right lower extremity was prepped and draped in the usual sterile fashion. Preoperative time-out was made to correctly identify the patient, side and site. Appropriate intraoperative antibiotics were given within one hour of incision. Tourniquet was inflated. A midline incision was made and carried sharply down to the extensor mechanism. A new 10 blade was used to make a standard medial parapatellar arthrotomy. The patella was subluxed laterally. Electrocautery was used to dissect soft tissue off the superomedial tibia to the midsagittal plane. The knee was flexed up. The anterior horn of the lateral meniscus and the ACL were sharply incised. A drill was used to enter the distal femur. The intramedullary distal femoral cutting guide was pinned on the distal femur. The oscillating saw was used to make the distal femoral cut. The external rotation guide was pinned on the distal femur and the distal femur was sized to a size 4. The size 4 multi-cutting jig was pinned on the distal femur. The oscillating saw was used to make the appropriate 4 chamfer cuts. Next the PCL was completely released. The extramedullary tibial cutting guide was pinned on the proximal tibia and the oscillating saw was used to make the proximal tibial cut perpendicular to the mechanical axis of the tibia. The bone was carefully removed. The knee was brought out into full extension. The spacer block was placed and had excellent fit with the knee in full extension. The medial and lateral ligaments were well balanced. The flexion and extension gaps were well balanced. The knee was flexed up. Lamina medical physiologist was placed both medially and laterally. Any remaining meniscus was removed with electrocautery. Curved osteotome was used to remove any posterior osteophytes. The tibial tray and drop wagner were placed and confirmed a satisfactory tibial cut. The size 4 right femoral trial was impacted onto the distal femur. This trial had excellent fit and stability. The box for the posterior stabilized implant was prepared using a box cut osteotome and a reamer. Next a tibial tray trial and 9 mm insert trial was placed. The knee was taken through a range of motion and had full extension to 130 degrees of flexion. Patellofemoral tracking was satisfactory. The patella was inverted and sized to a size 29. Three peg holes were drilled through the size 29 drill guide. The trial patella was placed and the knee was taken through a range of motion. There was satisfactory patellofemoral tracking. All trials were removed. The tibia was subluxed anteriorly and sized to a size 2. The proximal tibial was prepared with a size 2 keel punch. All bony cut surfaces were irrigated with sterile saline and dried. Final implants were cemented into place starting with the tibia, followed by the femur, and last the patella. A 9 mm insert trial was placed and the knee was brought into full extension. Tourniquet was turned down and the knee was copiously irrigated with sterile saline. Electrocautery was used to obtain meticulous hemostasis. Once the cement had fully cured, the insert trial was removed. Any excess cement was removed from around the hardware and capsule. Final insert chosen was a 9 mm posterior stabilized Jaime II articular insert size 1-2. Stability of the insert was checked and noted to be stable. The extensor mechanism was closed using number 1 vicryls. The rest of the incision was closed in a layered fashion using 0 and 2-0 vicryls. The skin was closed using 3-0 nylon suture. Sterile xeroform, 4x4s and webril were used to cover the incision. Ciro wrap and cold pack were used to cover the dressings. The patients anesthesia was reversed without difficulty. She was taken to the PACU in stable condition. Intended weight-bearing will be as tolerated.
[2019-04-20] MEDS: Lactated Ringers 1000 ML Bag* 1,000 ML IV SCH (15:35)
--- NOTE | 2019-04-20 16:16 | CONS ---
CONSULTATION REPORT: DATE OF CONSULT: 04/20/19 PROVIDER: Tayler Guerrero NP ATTENDING PHYSICIAN: Dr. Luann Terrell CONSULTING PHYSICIAN: Dr. Radha Garvey (dictated by Tayler Guerrero NP) REASON FOR CONSULT: Co-management of chronic medical conditions. HISTORY OF PRESENT ILLNESS: Ms. Middleton is a 74-year-old female with a past medical history significant for osteoarthritis, hypertension, history of chronic diastolic heart failure, small vessel coronary artery disease, morbid obesity, Prinzmetal's angina, diverticulitis, GERD, kidney stones, history of breast cancer in 2013 currently in remission, who presented [place] [facility] [place] elective right total knee arthroplasty with Dr. Terrell. Please see dictated H and P from Dov AN for complete details. In brief, the patient had ongoing pain and failed conservative measures; therefore, opted for an elective right total knee arthroplasty with Dr. Terrell. In the immediate postoperative period, the patient has no complaints. She denies any recent fever or chills. She denies any chest pain, edema. No cough, hemoptysis, shortness of breath. Denies any nausea, vomiting, diarrhea or abdominal pain, hematuria or dysuria. Denies any focal weakness or sensory loss, facial complaints, dysphagia, arthralgias, myalgias, rashes, lesions, open sores, psychosis or anxiety. Due to her history of angina and chronic diastolic heart failure and hypertension, Hospital Medicine was asked to help co-manage her care during her hospitalization. PAST MEDICAL HISTORY: Significant for: 1. Osteoarthritis. 2. Hypertension. 3. Coronary artery disease, small vessel. 4. History of chronic diastolic heart failure. 5. Morbid obesity. 6. Prinzmetal's angina. 7. Diverticulitis. 8. GERD. 9. Kidney stones. 10. History of breast cancer, currently in remission since 2013 status post radiation lumpectomy. 11. Obstructive sleep apnea, wears CPAP at night. PAST SURGICAL HISTORY: 1. x2. 2. Appendectomy. 3. Cataracts bilaterally. 4. Lumpectomy. 5. Lithotripsy. 5. Right knee arthroscopy. HOME MEDICATIONS: Include: 1. Cardizem CD 120 mg b.i.d. 2. Magnesium oxide 250 mg p.o. daily. 3. Potassium ER 20 mEq p.o. daily. 4. Chlorthalidone 25 mg p.o. daily. 5. Atorvastatin 40 mg p.o. daily. 6. Amitiza 24 mcg p.o. b.i.d. 7. Isosorbide 15 mg p.o. daily. 8. Vitamin D 2000 units p.o. daily. 9. Omeprazole 20 mg p.o. b.i.d. ALLERGIES: No known drug allergies. FAMILY HISTORY: Father with an UT at 45. Brother with open heart surgery. Brother and sister with diabetes, cancer. Sister with brain tumor. Brother with prostate cancer. Another brother with lymphoma, and siblings with skin cancer. SOCIAL HISTORY: The patient is a former smoker where she quit at the age of 29. Prior to that she smoked 5 cigarettes a day for approximately 5 years. She reports rare alcohol use. Denies any illicit drug use. Surrogate decision maker in the event she is unable to make her own decisions is Arthur. She is a full code. REVIEW OF SYSTEMS: An 11-point review of systems was completed. All pertinent positives were mentioned in the HPI, otherwise were negative. PHYSICAL EXAM: General: At this time, Ms. Middleton is a 74-year-old female. She is alert and oriented, resting on the stretcher in PACU. She is in no acute distress. Vital Signs: Blood pressure 111/76, heart rate 59, respirations are 16, O2 saturation 98% on 2 L, temperature was 97.2. HEENT: Head is atraumatic, normocephalic. Eyes: EOMs are intact. Sclerae anicteric and not pale. Oral mucosa appeared to be moist. Neck is supple. Lungs are clear to auscultation bilaterally. No wheezes, rales, or rhonchi. Cardiac: S1 , S2. Regular rate and rhythm. No murmurs, rubs, or gallops. Abdomen is soft and nontender. Bowel sounds are present x4. Extremities: She is able to move her upper extremities. She has limited range of motion due to spinal to her lower extremities. Pedal pulses are +2 bilaterally. There is no clubbing or cyanosis. She does have a dressing that is dry and intact to her right knee. Neurologic: She is awake, alert and oriented x3. Speech is clear. Thought process intact. There are no gross focal deficits. Skin: She does have a dressing that is dry and intact to her right knee. LABORATORY DATA AND DIAGNOSTIC STUDIES: CBC from 04/07/19: WBCs are 6.8, RBCs 4.37, hemoglobin 14.2, hematocrit is 42, platelet count is 344. INR 1.02. Sodium 140, potassium 4.0, chloride 104, carbon dioxide is 29, anion gap of 7, BUN was 15, creatinine was 0.76, glucose was 135. Calcium was 9.9. ASTs were 12, ALTs were 14, alkaline phosphatase was 89. Total protein was 6.2. Urine color was rick, appearance cloudy, pH was 5.0, specific gravity 1.031. Urine protein was negative, ketones were trace, wbc's were 3+, rbc's were 3+. Urine blood, nitrites and bilirubin were all negative. Urobilinogen was negative. Urine leukocyte esterase is negative. IMPRESSION AND PLAN: Ms. Middleton is a 74-year-old female, who presented to [facility] [place] an elective right total knee arthroplasty with Dr. Terrell. In the immediate postoperative period, the patient has no complaints. Our recommendations are as follows: 1. Status post right total knee arthroplasty: Management per Orthopedics. PT/ OT per Orthopedics. Bowel regimen per Orthopedics. Pain management per Orthopedics. 2. Coronary artery disease, Prinzmetal's angina: The patient should continue on Cardizem 120 mg b.i.d. as previously prescribed with holding parameter for heart rate less than 50s, systolic blood pressure less than 110. She can continue Imdur 15 mg p.o. daily. Again hold for systolic blood pressure less than 110. 3. Hypertension: The patient will hold her chlorthalidone. 4. Hyperlipidemia: She should continue on atorvastatin 40 mg p.o. daily. 5. Gastroesophageal reflux disease. She should continue on omeprazole 20 mg p.o. b.i.d. 6. FEN: She can have heart healthy, caffeine okay diet. 7. Code status: She is a full code. 8. DVT prophylaxis: As per Orthopedics. TIME SPENT: Time spent on this consultation was 45 minutes, greater than half that time was spent at the bedside reviewing events leading thus far to her hospitalization, performing physical exam, and reviewing my plan of care. I have discussed this with my attending, Dr. Radha Garvey; she is in agreement with my plan. TAYLER GUERRERO, WATER PUMPER [id number]/[facility] #: [id number] [facility]
[2019-04-20] MEDS: oxyCODONE/Acetamin 5/325 MG* TAB PO PRN (16:33)
[2019-04-20] MEDS: Acetaminophen TAB* 325 MG PO SCH ×2 (16:34→23:56)
[2019-04-20] MEDS: ceFAZolin 1 GM ADVAN(*) 1 GM in NS 0.9% 50 ML* 50 ML IVPB SCH (17:33)
[2019-04-20] MEDS ORDERED: Potassium Chlor TAB* 20 MEQ TAB.ER PO SCH (18:00)
[2019-04-20] MEDS ORDERED: Pantoprazole TAB * 40 MG TAB PO SCH (18:00)
[2019-04-20] MEDS ORDERED: Aspirin EC TAB* 81 MG TAB.EC PO SCH (18:00)
[2019-04-20] MEDS: Diltiazem CD CAP* 120 MG PO SCH (20:44)
[2019-04-20] MEDS: Magnesium Hydroxide LIQ* 30 ML UDC PO SCH (20:44)
[2019-04-20] MEDS: Docusate CAP* 100 MG PO SCH (20:45)
[2019-04-20] MEDS ORDERED: DILTIAZEM HCL 120 MG PO SCH (21:00)
[2019-04-20] MEDS ORDERED: Atorvastatin* 40 MG TAB PO SCH (21:00)
[2019-04-20] MEDS: CMCS: Lubiprostone 24 MCG CAP (NF) PO SCH (21:00)
[2019-04-20] MEDS: oxyCODONE TAB* 5 MG TAB PO PRN (22:32)
[2019-04-21] MEDS: ceFAZolin 1 GM ADVAN(*) 1 GM in NS 0.9% 50 ML* 50 ML IVPB SCH ×2 (01:26→09:32)
[2019-04-21] MEDS: Lactated Ringers 1000 ML Bag* 1,000 ML IV SCH (01:32)
[2019-04-21 06:15] LABS: Hematocrit 33 % (35-47); Hemoglobin 11.3 g/dL (12.0-16.0); Mean Platelet Volume 7.4 fL (7.4-10.4); Platelet Count 270 10^3/uL (150-450)
[2019-04-21 06:24] LABS: BUN/Creatinine Ratio 18.3 (8-20); EGFR African American 96.8 (>60); Potassium 3.3 mmol/L (3.5-5.0)
[2019-04-21] MEDS ORDERED: Potassium Chlor TAB* 20 MEQ TAB.ER PO ONE (07:17)
[2019-04-21] MEDS: oxyCODONE/Acetamin 5/325 MG* TAB PO PRN ×2 (07:33→11:38)
[2019-04-21] MEDS ORDERED: Vitamin THERAPEUTIC TAB PO SCH (09:00)
[2019-04-21] MEDS ORDERED: Isosorbide Mononitrate ER TAB* 30 MG PO SCH ×2 (09:00)
[2019-04-21] MEDS ORDERED: Apixaban* 2.5 MG TAB PO SCH (09:00)
[2019-04-21] MEDS ORDERED: Chlorthalidone TAB* 50 MG PO SCH (09:00)
[2019-04-21] MEDS ORDERED: Cholecalciferol TAB* 1000 UNITS PO SCH (09:00)
[2019-04-21] MEDS: Acetaminophen TAB* 325 MG PO SCH (09:25)
[2019-04-21] MEDS: Docusate CAP* 100 MG PO SCH (09:33)
[2019-04-21] MEDS: Diltiazem CD CAP* 120 MG PO SCH (09:33)
[2019-04-21] MEDS: Magnesium Hydroxide LIQ* 30 ML UDC PO SCH (09:40)
[2019-04-21] MEDS: CMCS: Lubiprostone 24 MCG CAP (NF) PO SCH (10:17)
--- NOTE | 2019-04-21 10:20 | PN ---
Progress Note - Progress Note Date of Service: 04/21/19 SOAP: Subjective: [Pt was seen this morning sitting comfortably in chair. The pt states that she is doing quite well. She would like to leave today if possible. She denies any chest pain, SOB, nausea or vomiting. ] Objective: [General. Pt is alert and oriented x3. NAD MSK, RLE: inspection of the right knee reveals a dressing that is c/d/i. The dressing was changed. The pts incision is c/d/i without drainage or purulence. + df/pf. Calves are soft and non tender. NVI distally. Vital Signs Temp 97.5 F 04/21/19 07:42 Pulse 62 04/21/19 07:42 Resp 18 04/21/19 10:18 BP 112/58 04/21/19 07:42 Pulse Ox 95 04/21/19 07:42 Intake & Output 04/20/19 04/21/19 04/21/19 18:59 06:59 18:59 Intake Total 1600 2030 1150 Output Total 1200 1200 200 Balance 400 830 950 Weight 177 lb 3.2 oz Intake: IV Fluids 1600 1220 1050 LR 1500 1220 1050 NS 100ML, Cefazolin 2G 100 IVPB 110 100 Cefazolin 110 50 Oral 700 Output: Urine 600 200 James 600 1200 ] Assessment: [POD 1 RTKA ] Plan: [DC home today. Pts pain is managed well and PT has cleared the pt. She will stay for second PT session. Continue with Eliquis x 30 days Continue with percocet 5/325 for pain control ]
[2019-04-21 11:46] VITALS: BP 118/54
--- NOTE | 2019-04-21 13:22 | DS ---
Orthopedic Discharge Summary - Discharge Summary Date of Admission:04/20/19 Date of Discharge: 04/21/19 Date of Surgery: 04/20/19 Attending Orthopedic Provider: Dr. Terrell Pre-operative Diagnosis: Right knee osteoarthritis Operative Procedure: Right total knee replacement Disposition of Patient: Home Condition of Patient: Good History: YAHAIRA JOHN is a 74 year old F with years of increasingly severe right knee pain. Patient has failed conservative management and has elected to undergo a right total knee replacement Hospital Course: YAHAIRA was admitted to [facility] on 04/20/19. Patient underwent a right total knee replacement without complication followed by a brief recovery in PACU and transfer to the Short Stay Surgical Unit in stable condition. Our hospitalist service, physical therapy and occupational therapy also participated in this patients care. Post-op day 1: patient was alert and in no acute distress. Dressing was clean, dry and intact. Dressing was changed. Operative extremity dorsiflexion and plantarflexion intact, sensation intact to light touch distally, DP2+. Patient was deemed to be medically and orthopedically stable for discharge. Physical therapy goals were met. Home Medications Medication Instructions Recorded Confirmed Type Aspirin EC TAB* [Ecotrin EC Low 81 mg PO 1800 03/10/13 04/20/19 History Dose 81 MG*] Atorvastatin* [Lipitor 80 MG*] 40 mg PO BEDTIME 03/10/13 04/20/19 History Omeprazole CAP (NF) [Prilosec CAP* 40 mg PO 1800 03/10/13 04/20/19 History 20 MG] dilTIAZem HCl [Diltiazem 24Hr ER] 120 mg PO BID 03/10/13 04/20/19 History Amitiza 24 mcg PO BID 03/22/13 04/20/19 History Isosorbide Mononitrate ER TAB* 15 mg PO QAM 06/04/15 04/20/19 History [Imdur ER TAB*] Chlorthalidone TAB* [Hygroton TAB*] 25 mg PO QAM 05/18/17 04/20/19 History Mag Oxide 250 Mg 250 mg PO 1800 05/18/17 04/20/19 History Potassium Chlor TAB* [Potassium 20 meq PO 1800 05/18/17 04/20/19 History Chlor TAB 20 MEQ*] Acetaminophen [Tylenol Extra 1,000 mg PO BID PRN 07/14/18 04/20/19 History Strength] Cholecalciferol TAB* [Vitamin D 2,000 units PO QAM 07/14/18 04/20/19 History TAB*] Docusate Sodium [Dulcolax Stool 250 mg PO 1800 04/05/19 04/20/19 History Softener] Polyethylene Glycol 3350 [Miralax] 17 gm PO DAILY PRN 04/05/19 04/20/19 History Bisacodyl EC TAB* [Dulcolax EC 10 mg PO BEDTIME PRN 04/07/19 04/20/19 History TAB*] Discharge Instructions following Orthopedic Surgery: Activity: * Weight Bearing as tolerated * Continue physical therapy and occupational therapy exercises as shown Wound care: * OK to shower on post-op day 3, no bathing, swimming, or submerging wound. * Use gentle soap, pat dry. Cover with gauze, EMMA wrap or tape. * Visiting home nurse to do wound checks. Call Orthopedic office for: * Increased drainage * Redness * Increased pain * Fever Go to ER with shortness of breath or chest pain. Diet: * Regular diet * Increase fluids and fiber to prevent constipation. * Continue to use stool softeners, call office if no bowel motion within 48 hours. Medications See Home Medication List in your packet for medications that you should take after discharge. Medications sent to [facility] pharmacy DVT Prophylaxis: Eliquis Dosin.5 mg, 1 tab every 12 hours x 30 days Pain Control: Percocet Dosin/325 mg 1-2 tabs by mouth every 4-6 hours as needed for pain. Maximum of 10 tabs per day. Please note that Percocet contains Tylenol (acetaminophen). Maximum daily dose of Tylenol is 4000 mg from all sources. Antibiotics are required prior to any dental work. FOLLOW UP: Follow up with [DANIEL] Within 10-14 days, call for appointment Please call our office with any questions or concerns ([phone])
[2019-04-21] MEDS: oxyCODONE TAB* 5 MG TAB PO PRN (15:22)
[2019-04-22] MEDS ORDERED: Bisacodyl SUPP* 10 MG SUPP PR PRN (11:38)
== END 2019-04-21 15:30 | disposition home or self-care (01) ==
LOC: OR 06:22 → EDSTATUS 07:30 → SSU 11:38 → INTOOBSV 11:38
PROVIDERS: ADMIT Orthopaedic Surgery Adult Reconstructive Orthopaedic Surgery; ATTEND Orthopaedic Surgery Adult Reconstructive Orthopaedic Surgery
DX: M17.11 Unilateral primary osteoarthritis, right knee (principal); M25.461 Effusion, right knee; M25.561 Pain in right knee; I10 Essential (primary) hypertension; I50.32 Chronic diastolic (congestive) heart failure; E66.01 Morbid (severe) obesity due to excess calories; I25.111 Atherosclerotic heart disease of native coronary artery with angina pectoris with documented spasm; Z85.3 Personal history of malignant neoplasm of breast; Z87.442 Personal history of urinary calculi; D64.9 Anemia, unspecified; Z79.899 Other long term (current) drug therapy; K21.9 Gastro-esophageal reflux disease without esophagitis
CPT/HCPCS: 36415; 80048; 85014; 85018; 85049; 88305; 88311; 96365; A9270-GY; C1776; G0378; G8978-GP-CK; G8979-GP-CI; J0690; J1100; J2250; J2405; J2704; J2795; J3490; J8540

== ENCOUNTER 2024-03-23 10:19 | Observation (INO) ==
[~2024-03-23 10:19] MED LIST changes: -Acetaminophen IV 1GM/100ML * 1,000 MG/100 ML VIAL IVPB ONE; -Buffered Lidocaine 1% SYRIN* 1 ML/SYRINGE INTRADERM ONE; -Gabapentin CAP(*) 300 MG PO ONE; -Lactated Ringers 1000 ML Bag* 1,000 ML IV SCH; +NS 0.45% 1000 ml BAG 1,000 ML IV SCH; +Naloxone 0.4 mg VIAL 0.4 mg/ml 1 ml VIAL IV PRN; -celeCOXIB CAP* 200 MG PO ONE
[2024-03-23] MEDS ORDERED: ceFAZolin 2 GM PREMIX 2 GM/50 ML BAG ONE (10:49)
[2024-03-23] MEDS ORDERED: Tranexamic Acid 1 GM/100ML BAG 2,000 MG/200 ML BAG IV ONE (10:51)
[2024-03-23 10:56] LABS: Rapid COVID-19 Molecular Undetected (Undetected)
[2024-03-23] MEDS: Lactated Ringers 1000 ml BAG 1,000 ML IV SCH ×2 (10:58→18:05)
[2024-03-23] MEDS: Buffered Lidocaine 1% SYRIN 1 ml INTRADERM ONE (10:58)
[2024-03-23] MEDS ORDERED: ROPIVACAINE 5 MG/ML 30 ML BTL (0.5%) ONE (12:23)
[2024-03-23] MEDS ORDERED: Midazolam 2 mg/2 ml VIAL 1 mg/ml 2 ml VIAL (2 mg) ONE (13:22)
[2024-03-23] MEDS ORDERED: fentaNYL 100 mcg/2 ml 50 MCG/ML VIAL ONE ×2 (13:43→16:58)
[2024-03-23] MEDS ORDERED: Glycopyrrolate IV 0.2 MG/ML 1 ML VIAL ONE (13:46)
[2024-03-23] MEDS ORDERED: KETAMINE HCL 10 MG/ML 20 ml VIAL (200 MG) ONE (13:47)
[2024-03-23] MEDS ORDERED: Phenylephrine 40 mcg/mL 10mL (400mcg) SYRINGE ONE (14:35)
[2024-03-23] MEDS ORDERED: Propofol 10 MG/ML 20 ML BTL ONE (15:01)
[2024-03-23] MEDS ORDERED: Magnesium Hydroxide LIQ 30 ML UDC PO PRN (15:49)
[2024-03-23] MEDS ORDERED: Morphine 2 MG/ML SYRINGE IV PRN (15:49)
[2024-03-23] MEDS ORDERED: Lactulose 30 ml UDC PO PRN (15:49)
[2024-03-23] MEDS ORDERED: Ondansetron 4 mg VIAL 2 MG/ML 2 ml VIAL IV PRN (15:49)
[2024-03-23] MEDS ORDERED: Calcium Carb (TUMS) 500 mg CHEW TAB PO PRN (15:49)
[2024-03-23] MEDS ORDERED: Ondansetron 4 mg VIAL 2 MG/ML 2 ml VIAL ONE (16:41)
[2024-03-23] MEDS: Ondansetron 4 mg VIAL 2 MG/ML 2 ml VIAL IV PRN (16:42)
[2024-03-23] MEDS ORDERED: Acetaminophen IV 1 GM/100ML 1,000 MG/100 ML BAG IV ONE (16:58)
[2024-03-23] MEDS ORDERED: Metoclopramide 5 MG/ML VIAL (10 mg) ONE (16:58)
[2024-03-23] MEDS: Metoclopramide 5 MG/ML VIAL (10 mg) IV PRN (16:59)
[2024-03-23] MEDS: fentaNYL 100 mcg/2 ml 50 MCG/ML VIAL IV PRN (17:00)
[2024-03-23] MEDS: Acetaminophen IV 1 GM/100ML 1,000 MG/100 ML BAG IV ONE (17:01)
[2024-03-23] MEDS: Ondansetron ODT 4 mg TAB 4 MG TAB PO PRN (20:56)
[2024-03-23] MEDS: Calcium Citrate 200 mg TAB PO SCH (20:59)
[2024-03-23] MEDS: Magnesium Hydroxide LIQ 30 ML UDC PO SCH (21:01)
[2024-03-23] MEDS: ceFAZolin 2 GM PREMIX 2 GM/50 ML BAG IV SCH (21:02)
[2024-03-24 05:56] LABS: Hematocrit 33.5 % (35-45); Hemoglobin 11.8 g/dL (11.5-14.3); Mean Platelet Volume 6.5 fL (7.5-11.2); Platelet Count 301 10^3/uL (150-450)
[2024-03-24 06:14] LABS: Calcium 8.9 mg/dL (8.6-10.3); Creatinine, Serum 0.77 mg/dL (0.51-0.95); Potassium 3.5 mmol/L (3.5-5.0); eGFR CKD-EPI 77.9 (>60)
[2024-03-24] MEDS: Isosorbide Mononit ER 30mg TAB PO SCH (08:35)
[2024-03-24] MEDS: Vitamin THERAPEUTIC TAB PO SCH (08:36)
[2024-03-24] MEDS: PLECANATIDE 3 MG PO SCH (08:40)
[2024-03-24 13:55] VITALS: BP 120/65
[2024-03-24] MEDS ORDERED: Aspirin EC 81 mg TAB.EC (enteric coated) PO SCH (18:00)
[2024-03-24] MEDS ORDERED: Potassium Chlor 20 meq TAB.ER PO SCH (18:00)
== END 2024-03-24 14:20 | disposition home or self-care (01) ==
LOC: AA 10:19 → INTOOBSV 10:19 → SSU 15:49
PROVIDERS: ADMIT Orthopaedic Surgery Adult Reconstructive Orthopaedic Surgery; ATTEND Orthopaedic Surgery Adult Reconstructive Orthopaedic Surgery